=== PATIENT | female | born 1960 | race Caucasian/White ===

== ENCOUNTER → 2021-07-17 | Outpatient (CLI) | payer OTHER ==
[2021-07-17 13:40] LABS: HEMATOCRIT 37.6 % (37.0-47.0); MCH 28.6 pg (26.0-34.0); MCV 89.2 fL (80.0-100.0); PLATELET COUNT 330 thou/uL (150-400); RBC 4.21 mil/uL (4.20-5.00); WBC 7.9 thou/uL (4.0-11.0)
[2021-07-17 13:59] LABS: ALBUMIN 4.6 g/dL (3.4-5.0); ANION GAP 12 mmol/L (7-16); BUN 9 mg/dL (7-18); CALCIUM 9.5 mg/dL (8.5-10.1); CHLORIDE 99 mmol/L (98-107); CO2 25 mmol/L (21-32); CREATININE 0.7 mg/dL (0.6-1.0); GLUCOSE 85 mg/dL (74-106); POTASSIUM 3.9 mmol/L (3.5-5.1); SGOT 24 U/L (15-37); SGPT 40 U/L (14-59); SODIUM 136 mmol/L (136-145); TOTAL BILIRUBIN 0.5 mg/dL (0.2-1.0); TOTAL PROTEIN 8.7 g/dL (6.4-8.2)
[2021-07-17 14:28] LABS: ABSOLUTE NEUTROPHILS 2.8 thou/uL (1.4-8.2)
[2021-07-18 10:12] LABS: ANA INTERPRETATION Negative (Negative)
[2021-07-18 22:06] LABS: CYCLIC CITRULLINATED PEPTIDE 8 units (0-19)
== END ==
LOC: LAB 12:22
PROVIDERS: ATTEND Internal Medicine
DX: D72.19 Other eosinophilia (principal)

== ENCOUNTER → 2021-07-30 | Outpatient (CLI) | payer OTHER ==
--- NOTE | 2021-07-30 11:13 | 2DMMODE ---
[facility] [place] [address] 2 D/M-MODE ECHOCARDIOGRAM Name: DANNIELLE STEVENS Room #: REG LONA Agustín#: [id number] Admission: 07/30/21 Attend Phys: Francisco Javier Villegas MD Discharge: Date of : 62 Report #: [id number] THIS REPORT FOR: cc: FAM - Family physician unknown FAM - Family physician unknown Ministerio Pacheco MD [facility] ~ APPROVED REPORT Study performed: 07/30/2021 10:02:28 EXAM: Comprehensive 2D, Doppler, and color-flow Echocardiogram Patient Location: Out-Patient Room #: 1 Status: routine BSA: 1.76 HR: 74 bpm Rhythm: NSR Other Information Study Quality: Good Indications Chest Pain 2D Dimensions RVDd: 37.46 mm IVSd: 10.80 (7-11mm) LVOT Diam: 20.15 (18-24mm) LVDd: 41.92 mm PWd: 10.80 (7-11mm) Ascending Ao: 31.17 (22-36mm) LVDs: 31.02 (25-40mm) Left Atrium: 45.76 (27-40mm) Aortic Root: 32.92 mm IVC: 18.00 mm Volumes Left Atrial Volume (Systole) Single Plane 4CH: 41.61 mL Single Plane 2CH: 29.58 mL LA ESV Index: 24.00 mL/m2 Aortic Valve AoV Peak Mode.: 1.18 m/s AO Peak Gr.: 5.52 mmHg LVOT Max P.64 mmHg LVOT Max V: 1.08 m/s ELBERT Vmax: 2.92 cm2 [facility] [address] [address] 2 D/M-MODE ECHOCARDIOGRAM Name: DANNIELLE STEVENS Room #: REG CL [facility]#: [id number] Admission: 07/30/21 Attend Phys: Francisco Javier Villegas MD Discharge: Date of : 62 Report #: [id number] Mitral Valve E/A Ratio: 1.0 MV Decel. Time: 140.24 ms MV E Max Mode.: 0.90 m/s MV A Mode.: 0.86 m/s MV PHT: 40.67 ms IVRT: 96.89 ms Pulmonary Valve PV Peak Mode.: 0.75 m/s PV Peak Gr.: 2.24 mmHg Pulmonary Vein P Vein S: 0.50 m/s P Vein A: 0.26 m/s P Vein D: 0.46 m/s P Vein A Dur.: 106.1 msec P Vein S/D Ratio: 1.09 Tricuspid Valve TR Peak Mode.: 2.30 m/s TR Peak Gr.: 21.13 mmHg PA Pressure: 26.00 mmHg Left Ventricle The left ventricle is normal size. There is normal LV segmental wall motion. There is normal left ventricular wall thickness. Left ventricular systolic function is normal. The left ventricular ejection fraction is within the normal range. LVEF is 55-60%. The left ventricular diastolic function is normal. Right Ventricle The right ventricle is normal size. The right ventricular systolic function is normal. Atria The left atrium size is normal. The right atrium size is normal. Aortic Valve The aortic valve is normal in structure. No aortic regurgitation is present. There is no aortic valvular stenosis. Mitral Valve The mitral valve is normal in structure. Trace mitral regurgitation. No evidence of mitral valve stenosis. Tricuspid Valve [facility] [address] [place] [address] 2 D/M-MODE ECHOCARDIOGRAM Name: DANNIELLE STEVENS Room #: REG CL [facility].#: [id number] Admission: 07/30/21 Attend Phys: Francisco Javier Villegas MD Discharge: Date of : 62 Report #: [id number] The tricuspid valve is normal in structure. There is trace tricuspid regurgitation. Estimated PAP 26 mmHg. There is no pulmonary hypertension. Pulmonic Valve The pulmonary valve is normal in structure. There is no pulmonic valvular regurgitation. Great Vessels The aortic root is normal in size. IVC is normal in size and collapses >50% with inspiration. Pericardium There is no pericardial effusion. <Conclusion> Normal left ventricle size/wall thickness central ejection fraction 55% Normal right ventricle size/function Normal atrial size Normal aortic valve structure and function Mild mitral valve insufficiency Trace tricuspid valve insufficiency Pulmonary systolic pressure estimated at 26 mmHg No pericardial effusion Normal aortic root size. <ELECTRONICALLY SIGNED> By: Ministerio Pacheco MD, FACC 07/30/211112 12 12 Ministerio Pacheco MD, FACC /INF
== END ==
LOC: CAT 09:31
PROVIDERS: ATTEND Internal Medicine
DX: I34.0 Nonrheumatic mitral (valve) insufficiency (principal); R06.02 Shortness of breath